=== PATIENT | female | born 1960 | race Caucasian/White ===

== ENCOUNTER 2021-05-01 13:35 | Emergency (ER) | payer OTHER ==
[~2021-05-01] VITALS: Ht 157.5 cm; Wt 74.8 kg
[2021-05-01 13:49] VITALS: BP 134/90
[2021-05-01] MEDS ORDERED: ZPAK PO (14:14)
[2021-05-01] MEDS ORDERED: PREDNISONE 20 M20 M1 PO (14:14)
== END 2021-05-01 14:23 | disposition home or self-care (01) ==
LOC: M.ERS 13:35
DX: J40 Bronchitis, not specified as acute or chronic (principal)